=== PATIENT | male | born 1965 | race Caucasian/White ===

== ENCOUNTER 2020-05-08 08:42 | Outpatient (CLI) | payer OTHER, SELFPAY ==
--- NOTE | ~2020-05-08 | XR_ITS ---
EXAMINATION: XR chest 2V 05/08/2020 09:03 INDICATION: Cough. Difficulty breathing. Midsternal chest pain. PROCEDURE: 2 view chest COMPARISON: No prior studies for comparison. FINDINGS: The lungs are clear. The cardiomediastinal silhouette is within normal limits. There are no pleural effusions. There is no pneumothorax suspected. IMPRESSION: 1: NO ACUTE CARDIOPULMONARY DISEASE. Reviewed, dictated and finalized at location B. Y EQUIPMENT SPECIALIST
[2020-05-08 09:02] LABS: Basophils Absolute Auto 0.01 K/mm3 (0.00-0.10); Basophils Percent Auto 0.2 % (0.0-1.0); Eosinophils Absolute Auto 0.25 K/mm3 (0.02-0.50); Eosinophils Percent Auto 5.2 % (1.0-6.0); Hematocrit 46.6 % (40.0-54.0); Hemoglobin 15.5 g/dL (14.0-18.0); Immature Granulocyte Absolute 0.01 K/mm3 (0.00-0.00); Immature Granulocyte Percent A 0.2 % (0.0-0.0); Lymphocytes Absolute Auto 1.13 K/mm3 (1.10-4.50); Lymphocytes Percent Auto 23.3 % (18.0-42.0); Mean Corpuscular HGB Conc 33.3 g/dL (32.0-36.0); Mean Corpuscular Hemoglobin 29.5 pg (27.0-31.0); Mean Corpuscular Volume 88.6 fL (78.0-102.0); Mean Platelet Volume 9.7 fl (8.7-11.0); Monocytes Absolute Auto 0.42 K/mm3 (0.10-0.90); Monocytes Percent Auto 8.7 % (2.0-11.0); Neutrophils Percent Auto 62.4 % (50.0-70.0); Platelet Count Result 206 K/mm3 (150-420); Red Blood Count 5.26 M/mm3 (4.70-6.10); White Blood Count 4.8 K/mm3 (4.8-10.8)
[2020-05-08 10:30] LABS: Alanine Aminotransferase 42 U/L (16-63); Alkaline Phosphatase 58 U/L (46-116); Anion Gap 9 mmol/L (8-16); Aspartate Amino Transferase 21 U/L (15-37); Bilirubin,Total 0.7 mg/dL (0.00-1.00); Blood Urea Nitrogen 14 mg/dL (7-18); Calcium 8.6 mg/dL (8.5-10.1); Carbon Dioxide 28 mmol/L (21-32); Chloride 105 mmol/L (98-108); Estimated Glomerular Filt Rate > 60; Glucose 102 mg/dL (70-99); Osmolality Calculated 294 mOsm/kg (285-295); Potassium 4.2 mmol/L (3.5-5.1); Sodium 142 mmol/L (136-145); Total Protein 6.9 g/dL (6.4-8.2)
[2020-05-09 01:01] LABS: SARS-CoV-2 RNA PCR Positive
== END 2020-05-08 08:43 | disposition home or self-care (01) ==
PROVIDERS: PCP Internal Medicine; Visit Provider Internal Medicine
DX: U07.1 COVID-19 (principal); R05 Cough; R09.81 Nasal congestion
CPT/HCPCS: 36415; 71046; 80053; 85025; 87635; C9803; U0003

== ENCOUNTER 2020-08-28 09:46 | Outpatient (CLI) | payer OTHER, SELFPAY ==
[2020-08-28 09:58] LABS: Add Urine Microscopic? NO; Appearance Urine Clear (Clear); Bilirubin Urine Negative (Negative); Blood Urine Negative (Negative); Color Urine Yellow (Yellow); Glucose Urine UA Negative (Negative); Ketones Urine Negative (Negative); Leukocyte Esterase Ur Negative (Negative); Nitrate Urine Negative (Negative); Protein Urine Negative (Negative); Urobilinogen Urine 0.2 mg/dL (0.2-1.0)
[2020-08-28 11:17] LABS: Cholesterol 199 mg/dL (0-200); HDL Direct 41 mg/dL (40-60); LDL Cholesterol Calculated 139 mg/dL (<130); Prostate Specific Antigen 0.4 ng/mL (< OR = 4.0); Triglycerides 94 mg/dL (0-150)
== END 2020-08-28 09:47 | disposition home or self-care (01) ==
LOC: CHSLAB 09:47
PROVIDERS: PCP Internal Medicine; Visit Provider Internal Medicine
DX: E78.2 Mixed hyperlipidemia (principal); Z00.00 Encounter for general adult medical examination without abnormal findings; Z12.5 Encounter for screening for malignant neoplasm of prostate
CPT/HCPCS: 36415; 80061; 81003; 84153; G0103

== ENCOUNTER 2021-03-27 11:26 | Outpatient (CLI) | payer OTHER, SELFPAY ==
[2021-03-27 11:49] LABS: Basophils Absolute Auto 0.03 K/mm3 (0.00-0.10); Basophils Percent Auto 0.6 % (0.0-1.0); Eosinophils Absolute Auto 0.36 K/mm3 (0.02-0.50); Hematocrit 39.7 % (40.0-54.0); Hemoglobin 13.4 g/dL (14.0-18.0); Immature Granulocyte Absolute 0.02 K/mm3 (0.00-0.00); Immature Granulocyte Percent A 0.4 % (0.0-0.0); Lymphocytes Absolute Auto 1.28 K/mm3 (1.10-4.50); Mean Corpuscular HGB Conc 33.8 g/dL (32.0-36.0); Mean Corpuscular Hemoglobin 30.4 pg (27.0-31.0); Mean Platelet Volume 9.7 fl (8.7-11.0); Monocytes Absolute Auto 0.53 K/mm3 (0.10-0.90); Monocytes Percent Auto 10.4 % (2.0-11.0); Neutrophils Absolute Auto 2.9 K/mm3 (1.7-7.2); Neutrophils Percent Auto 56.6 % (50.0-70.0); Platelet Count Result 201 K/mm3 (150-420); Red Blood Count 4.41 M/mm3 (4.70-6.10); White Blood Count 5.1 K/mm3 (4.8-10.8)
[2021-03-27 11:51] LABS: Add Urine Microscopic? YES; Appearance Urine Sl Cloudy (Clear); Bilirubin Urine Negative (Negative); Blood Urine Negative (Negative); Color Urine Yellow (Yellow); Glucose Urine UA Negative (Negative); Ketones Urine Negative (Negative); Leukocyte Esterase Ur Negative (Negative); Nitrate Urine Negative (Negative); Protein Urine Negative (Negative)
[2021-03-27 11:59] LABS: Amorphous Sediment Urine Moderate; Bacteria Urine Trace /hpf; RBC Urine None seen /hpf (0-2); WBC Urine None seen /hpf (0-3)
[2021-03-27 12:33] LABS: Alanine Aminotransferase 41 U/L (16-63); Albumin Level 3.8 g/dL (3.4-5.0); Alkaline Phosphatase 61 U/L (46-116); Anion Gap 10 mmol/L (8-16); Aspartate Amino Transferase 18 U/L (15-37); Bilirubin,Total 0.3 mg/dL (0.00-1.00); Blood Urea Nitrogen 17 mg/dL (7-18); Calcium 8.1 mg/dL (8.5-10.1); Carbon Dioxide 27 mmol/L (21-32); Chloride 107 mmol/L (98-108); Cholesterol 178 mg/dL (0-200); Estimated Glomerular Filt Rate > 60; Glucose 101 mg/dL (70-99); HDL Direct 38 mg/dL (40-60); LDL Cholesterol Calculated 116 mg/dL (<130); Osmolality Calculated 299 mOsm/kg (285-295); Potassium 4.4 mmol/L (3.5-5.1); Sodium 144 mmol/L (136-145); Total Protein 6.4 g/dL (6.4-8.2); Triglycerides 121 mg/dL (0-150)
[2021-03-27 13:32] LABS: Immature Reticulocyte Fraction 10.5 % (2.0-16.52); Reticulocyte Percent 1.52 % (0.50-1.50); Reticulocytes Absolute 0.07 M/mm3 (0.02-0.1)
[2021-03-27 13:52] LABS: Ferritin 20 ng/mL (26-388); Iron 63 ug/dL (65-175)
[2021-03-30 00:18] LABS: H pylori, Urea Breath NOT DETECTED (NOT DETECTED)
[2021-03-30 06:30] LABS: Red Blood Cell Folate 662 ng/mL RBC (>280)
== END 2021-03-27 11:27 | disposition home or self-care (01) ==
LOC: CHSLAB 11:28
PROVIDERS: PCP Internal Medicine; Visit Provider Internal Medicine
DX: R10.13 Epigastric pain (principal); I10 Essential (primary) hypertension; E78.2 Mixed hyperlipidemia; D64.9 Anemia, unspecified
CPT/HCPCS: 36415; 80053; 80061; 81001; 82728; 82747; 83013; 83540; 85025; 85046

== ENCOUNTER 2023-07-30 13:16 | Outpatient (CLI) | payer OTHER, SELFPAY ==
--- NOTE | ~2023-07-30 | US_ITS ---
EXAMINATION: US scrotum doppler DATE: 07/30/2023 13:51 INDICATION: Right testicular pain and swelling TECHNIQUE: Testicular sonogram utilizing grayscale and Doppler COMPARISON: None. FINDINGS: The right testis measures 4.5 x 3.2 x 3.0 cm. The left testis measures 3.7 x 2.4 x 2.4 cm. There is normal vascular flow to both testes. The right epididymis contains a 2.6 mm cyst or spermato edel. The left epididymis is normal with normal vascular flow. There are small bilateral hydroceles. IMPRESSION: 1. 2.6 mm cyst or spermatocele of the right epididymis. 2. Small hydroceles. Reviewed, dictated and finalized at location B. SELOR DORMITORY
== END 2023-07-30 13:17 | disposition home or self-care (01) ==
PROVIDERS: PCP Internal Medicine; Visit Provider Internal Medicine
DX: N50.89 Other specified disorders of the male genital organs (principal); N43.3 Hydrocele, unspecified
CPT/HCPCS: 76870; 93976

== ENCOUNTER 2025-01-11 12:25 | Outpatient (CLI) | payer OTHER, SELFPAY ==
--- OUTSIDE RECORDS SUMMARY | 2025-01-11 12:29 | XMS_ITS | Clinical Summary ---
Author Organization [facility] Address [address] [address] Phone Care Team Providers Care Supervisor Last Model Department Name Role Phone Unavailable Primary Care Provider Unavailabl e Social History Tobacco Use Types Packs/Day Years Used Date Smoking Tobacco: Never Assessed Sex and Gender Information Value Date Recorded Sex Assigned at Not on file Legal Sex Male 7:22 PM CDT Gender Identity Not on file Sexual Orientation Not on file Plan of Treatment Health Maintenance Due Date Last Done Comments Hepatitis C Virus (HCV) Screening 1965 TdaP Immunization 1965 Cologuard 08/19/2012 Colonoscopy 08/19/2012 Colorectal Cancer Screening 08/19/2012 Immunochemical Fecal Occult Blood 08/19/2012 Pneumococcal Immunization (50+ years) (1 of 1 - PCV) 08/19/2017 Zoster Immunization (1 of 2) 08/19/2017 SARS-COV-2 Immunization (3 - season) 2024 04/24/2021, 03/30/2021 Influenza Immunization (#1) 2025 Respiratory Syncytial Virus (RSV) Immunization (Adult) (1 - 1-dose 75+ series) 08/19/2042 Hepatitis B Immunization Completed 013, 09/15/2012, 08/18/2012, Additional history exists Human Papillomavirus (HPV) Immunization Aged Out No longer eligible based on patient's age to complete this topic Meningococcal Immunization (ACWY) Aged Out No longer eligible based on patient's age to complete this topic Rotavirus Immunization Aged Out No lo nger eligible based on patient's age to complete this topic
--- OUTSIDE RECORDS SUMMARY | 2025-01-11 12:30 | XMS_ITS | Patient Health Record ---
Author Organization [facility] Address [address] [place], [place] [id number] Support Name Relationship Address Phone EVARISTO MARTINEZ Emergency Contact Unknown SONIDO MARTINEZ Guarantor Unknown [phone] Reason For Referral No Information Plan Of Treatment No Information Insurance Providers Payer Name Payer Address Payer Phone Subscriber Number Group Number Insured Name Patient Relationship to Insured Coverage Start Date Coverage End Date [facility] [address] [place] [phone] [id number] SONIDO MARTINEZ Self - patient is the insured
--- OUTSIDE RECORDS SUMMARY | 2025-01-11 12:30 | XMS_ITS | Clinical Summary ---
Author Organization [facility] Physician Of [facility] [address] [place] [id number] Care Team Providers Care Realty Specialist Name Role Phone Juan Smalls MD Primary Care Provider + [phone] Allergies No known active allergies Medications sildenafiL (VIAGRA) 50 mg tablet Take 50 mg by mouth daily as needed for erectile dysfunction. Active loratadine-pseu doephedrine (CLARITIN-D 24-hour) 10-240 mg per 24 hr tablet Take 1 tablet by mouth daily as needed for allergies . 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 Ventral hernia without obstruction or gangrene 0 07/28/2018 Overview (07/28/2018): Added automatically from request for surgery [id number] Immunizations Immunization Administration Dates Next Due Hep B Vaccine 05/06/2007,04/01/2007 Surgical History Surgery Date Site/Laterality Comments SINUS SURGERY EAR SURGERY TONSILLECTOMY ADENOIDECTOMY COLONOSCOPY Medical History Medical History Date Comments Erectile dysfunction Epididymitis Ventral hernia Allergic rhinitis Hypertension Sinusitis Ear problems HL (hearing loss) Colon polyp Family History Medical History Relation Name Comments COPD Father Heart attack Father Hypertension Mother Relation Name Status Comments Father Mother Alive Social History Tobacco Use Types Packs/Day Years Used Date Smoking Tobacco: Never Smokeless Tobacco: Never Alcohol Use Standard Drinks/Week Comments No 0 (1 standard drink = 0.6 oz pur e alcohol) AUDIT-C Answer Date Recorded Q1: How often do you have a drink containing alcohol? Never 06/05/2022 Q2: How many drinks containi ng alcohol do you have on a typical day when you are drinking? Patient does not drink Q3: How often do you have si x or more drinks on one occasion? Never 06/05/2022 Sex and Gender Information Value Date Recorded Sex Assigned at Not on file Legal Sex Male 10:07 AM LINE CLEARANCE FOREMAN Gender Identity Not on file Sexual Orientation Not on file Obstetrics History Last Filed Vital Signs Vital Sign Reading Time Taken Comments Blood Pressure 127/90 06/05/2022 11:52 AM LINE CLEARANCE FOREMAN Pulse 67 06/05/2022 11:52 AM LINE CLEARANCE FOREMAN Temperature 36.1 C (97 F) 06/05/2022 11:32 AM LINE CLEARANCE FOREMAN Respiratory Rate 14 06/05/2022 11:52 AM LINE CLEARANCE FOREMAN Oxygen Saturation 94% 06/05/2022 11:52 AM LINE CLEARANCE FOREMAN Inhaled Oxygen Concentration - - Weight 120.2 kg (265 lb) 06/05/2022 10:03 AM LINE CLEARANCE FOREMAN Height 188 cm (6' 2) 06/05/2022 10:03 AM LINE CLEARANCE FOREMAN Body Mass Index 34.02 06/05/2022 10:03 AM LINE CLEARANCE FOREMAN Plan of Treatment Health Maintenance Due Date Last Done Comments Depression Screening 1965 Hepatitis C Screening 1965 Prostate Cancer Screening-PSA 1965 DTaP/Tdap/Td Vaccine (1 - Tdap) 08/19/1978 Regular Well Visit/Exam 18-64 08/19/1985 Covid-19 Vaccine ( season) 2024 04/24/2021, 03/30/2021 Influenza Vaccine (#1) 2025 03/25/2022, 2019 Colon Cancer Screening-Colonoscopy 06/05/2032 06/05/2022, 06/04/2017 Hepatitis B Screening Completed 05/27/2013 , 09/15/2012, 08/18/2012, Additional history exists Zoster Vaccine Completed 11/04/2020, 08/30/2020 Colon Cancer Screening-CT Colonography Discontinued 06/05/2022, 06/04/2017 Colon Cancer Screening-DNA Stool Discontinued 06/05/2022, 06/04/2017 Colon Cancer Screening-FIT Discontinued 06/05/2022, Colon Cancer Screening-Sigmoidoscopy Discontinued 06/05/2022, 06/04/2017 Pneumococcal vaccine <65 Aged Out No longer eligible based on patient's age to complete this topic Medical Devices Implanted Type Area Assistant Associate Full Professor Device Identifier Shelf Expiration Date Model / Serial / Lot [employer] [id number] Ventralight St Sepra 6x4in Monofilament Absorbable Low Profile Latex Free - [id number] Implanted:Qty: 1 on 08/17/2018 by Eldon Gage MD at [facility] N/A: Abdomen [employer] 04/05/2020 [id number] / / [id number] Procedures Procedure Name Priority Date/Time Associated Diagnosis Comments COLONOSCOPY 06/05/2022 11:04 AM LINE CLEARANCE FOREMAN from Last 3 Months or Most Recently Relevant to Health Maintenance Results * COLONOSCOPY (06/05/2022 11:04 AM LINE CLEARANCE FOREMAN) Anatomical Region Laterality Modality Other Narrative Procedure Note Josias Delgado MD - 06/05/2022 11:04 AM [facility] Patient Name: Sonido Christopher Procedure Date: 06/05/2022 11:04AM Date of : 1965 Admit Type: Outpatient Age: 56 Gender: Male Attending MD: Josias Delgado M.D. Room: [facility] ENDOSCOPY ROOM 3 Note Status: Finalized Procedure: Colonoscopy Indications: High risk colon cancer surveillance: Personalhistory of colonic polyps, Last colonoscopy: May2017 Referring MD: Juan Smalls MD Providers: Josias Delgado M.D., Jl Patel M.D. Medicines: Monitored Anesthesia Care Complications: No immediate complications. Estimated blood loss: Minimal. Estimated Blood Loss: Estimated blood loss was minimal. Procedure: Pre-Anesthesia Assessment: - Immediately prior to administration ofmedications, the patient was re-assessed for adequacy to receive sedatives. - The risks and benefits of the procedure and the sedation options and risks were discussed with the patient. All questions were answered and informed consent was obtained. The benefits, risks and alternatives of theprocedure and sedation were discussed and informed consentwas obtained. All questions were answered. Please referto the signed informed consent document in the medical record. The scope was passed under direct vision.The [id number] endoscope was introduced through the anus and advanced to 5 cm into the ileum. The colonoscopy was performed without difficulty. The patient tolerated the procedure well. The qualityof the bowel preparation was excellent. The bowel preparation used was Miralax via split dose instruction. Findings: The perianal and digital rectal examinations were normal. A few small-mouthed diverticula were found in the sigmoid colon. The exam was otherwise without abnormality on direct and retroflexion views. Impression: - Diverticulosis in the sigmoid colon. - The examination was otherwise normal on directand retroflexion views. - No specimens collected. Recommendation: - Repeat colonoscopy in 5 years for surveillance. - Return to referring physician. Electronically signed by Josias Delgado MD Josias Delgado M.D. 06/05/2022 11:31:18 AM . Number of Addenda: 0 Note Initiated On: 06/05/2022 11:04 AM Recognized by the [employer] for promoting quality in endoscopy Josias Delgado MD ENDOSCOPY PROCEDURES Final Re sult from Last 3 Months or Most Recently Relevant to Health Maintenance Insurance [facility] [place] [id number] Advance Directives For more information, please contact: [phone] * Full Code (Latest Code Status on File) Date Activated Date Inactivated Comments 06/05/2022 10:05 AM 06/05/2022 4:28 PM * Full Code Date Activated Date Inactivated Comments 08/17/2018 12:05 PM 08/18/2018 6:10 PM Care Teams Realty Specialist Relationship Specialty Start Date End Date Juan Smalls MD [address] [place] [address] PCP - General 05/19/17
--- OUTSIDE RECORDS SUMMARY | 2025-01-11 12:30 | XMS_ITS | Referral Summary ---
Author Organization [facility] Physician Of [facility] [address] [place] [id number] Care Team Providers Care Global Program Manager Name Role Phone Juan Smalls MD Primary Care Provider + [phone] Allergies No known active allergies Medications sildenafiL [...] (05/13/2022): Added automatically from request for surgery [id number] Chronic pansinusitis 10/19/2021 Chronic suppurative otitis media of left ear Ventral hernia without obstruction or gangrene 0 07/28/2018 Overview (07/28/2018): Added automatically from request for surgery [id number] Immunizations Immunization Administration Dates Next Due Hep B Vaccine 05/06/2007,04/01/2007 Social History Tobacco Use Types Packs/Day Years [...] on file Legal Sex Male 10:07 AM ENGINEER DESIGN AND CONSTRUCTION Gender Identity Not on file Sexual Orientation Not on file Last Filed Vital Signs Vital Sign Reading Time Taken Comments Blood Pressure 127/90 06/05/2022 11:52 AM ENGINEER DESIGN AND CONSTRUCTION Pulse 67 06/05/2022 11:52 AM ENGINEER DESIGN AND CONSTRUCTION Temperature 36.1 C (97 F) 06/05/2022 11:32 AM ENGINEER DESIGN AND CONSTRUCTION Respiratory Rate 14 06/05/2022 11:52 AM ENGINEER DESIGN AND CONSTRUCTION Oxygen Saturation 94% 06/05/2022 11:52 AM ENGINEER DESIGN AND CONSTRUCTION Inhaled Oxygen Concentration - - Weight 120.2 kg (265 lb) 06/05/2022 10:03 AM ENGINEER DESIGN AND CONSTRUCTION Height 188 cm (6' 2) 06/05/2022 10:03 AM ENGINEER DESIGN AND CONSTRUCTION Body Mass Index 34.02 06/05/2022 10:03 AM ENGINEER DESIGN AND CONSTRUCTION Plan of Treatment Not on file Medical Devices Implanted Type Area Valet Device Identifier Shelf Expiration Date Model / Serial / Lot [employer] [id number] Ventralight St Sepra 6x4in Monofilament Absorbable Low Profile Latex Free - [id number] Implanted:Qty: 1 on 08/17/2018 by Eldon Gage MD at [facility] N/A: Abdomen [employer] 04/05/2020 [id number] / / [id number] Procedures Procedure Name Priority Date/Time Associated Diagnosis Comments COLONOSCOPY 06/05/2022 11:04 AM ENGINEER DESIGN AND CONSTRUCTION from Last 3 Months or Most Recently Relevant to Health Maintenance Results * COLONOSCOPY (06/05/2022 11:04 AM ENGINEER DESIGN AND CONSTRUCTION) Anatomical Region Laterality Modality Other Narrative Procedure Note Josias Delgado MD - 06/05/2022 11:04 AM [facility] Patient Name: Sonido Christopher Procedure Date: 06/05/2022 11:04AM Date of : 1965 Admit Type: Outpatient Age: 56 Gender: Male Attending MD: Josias Delgado M.D. Room: [facility] ENDOSCOPY ROOM 3 Note Status: [...] The scope was passed under direct vision.The [id number] endoscope was introduced through the anus and [...] On: 06/05/2022 11:04 AM Recognized by the [employer] for promoting quality in endoscopy Josias Delgado MD ENDOSCOPY PROCEDURES Final Re sult from Last 3 Months or Most Recently Relevant to Health Maintenance Insurance [facility] [place] [id number] Advance Directives For more information, please contact: [phone] * Full Code (Latest Code Status on File) Date Activated Date Inactivated Comments 06/05/2022 10:05 AM 06/05/2022 4:28 PM * Full Code Date Activated Date Inactivated Comments 08/17/2018 12:05 PM 08/18/2018 6:10 PM Care Teams Global Program Manager Relationship Specialty Start Date End Date Juan Smalls MD [address] [place] [id number] [facility] - General 05/19/17
--- NOTE | 2025-01-31 12:52 | WPDHOLTEREM ---
Holter/Event Monitor Holter/Event Monitor Date of procedure: 01/11/25 Holter/Event Procedure: Event Monitor Indications: Palpitations Conclusion: 1. 13 days event monitor on 01/11/25. 2. Predominant rhythm is sinus rhythm. HR range 37-145 bpm; average HR 65 bpm. HR at 37 bpm was on 01/16/25 at 6:00 am. 3. There are rare premature supraventricular complexes and rare supraventricular couplets. There is 1 episode of supraventricular tachycardia at 145 bpm lasting 9 beats. 4. There are frequent premature ventricular complexes at burden of 7.8%. No ventricular tachycardia. 5. No significant pauses greater than 3 seconds. 6. Patient reports 8 episodes of symptoms of irregular beats which demonstrate sinus rhythm, HR range 63-83 bpm with 8 episodes of PVC's.
== END 2025-01-11 12:26 | disposition home or self-care (01) ==
PROVIDERS: PCP Internal Medicine; Visit Provider Internal Medicine
DX: R00.2 Palpitations (principal)
CPT/HCPCS: 93270